=== PATIENT | female | born 1965 | race Caucasian/White ===

== ENCOUNTER 2022-05-20 14:28 | Emergency (ER) | payer BC, SELFPAY ==
[2022-05-20 14:43] VITALS: BP 135/85; PULSE 87; RESP 20; TEMP 37.9; O2SAT 94; BMI 23.9
--- NOTE | 2022-05-20 15:05 | CRLHL7_ITS ---
For Patients: As a result of the Century Cures Act, medical imaging exams and procedure reports are released immediately into your electronic medical record. You may view this report before your referring provider. If you have questions, please contact your health care provider. INDICATION: Headache TECHNIQUE: CT head without contrast. COMPARISON: CT January 2020. FINDINGS: No intracranial hemorrhage. No discrete mass or mass effect. There is no midline shift. The basilar cisterns are patent. No hydrocephalus. The bishop-white matter interface is otherwise preserved. No acute osseous abnormality. No extracalvarial soft tissue abnormality. The mastoid air cells are clear. The paranasal sinuses are well-aerated. The visualized portions of the orbits and globes are unremarkable. IMPRESSION: No acute intracranial process per unenhanced head CT. Please note that all CT scans at this facility use dose modulation, iterative reconstruction, and/or weight-based dosing when appropriate to reduce radiation dose to as low as reasonably achievable. Dictated by Spike Russo MD @ 05/20/2022 4:42:12 PM (Electronically Signed)
[2022-05-20] MEDS: 0.9 % SODIUM CHLORIDE 1000 ml 1,000 ML IV (15:24)
[2022-05-20] MEDS: KETOROLAC 30 MG/ML inj IVP (15:25)
[2022-05-20] MEDS: ONDANSETRON 2 MG/ML inj 4 MG IVP (15:25)
[2022-05-20] MEDS: ACETAMINOPHEN 500 MG TABLET 1000 MG PO (15:26)
--- NOTE | 2022-05-20 15:31 | ED_ITS ---
HPI - Headache General Date Seen: 05/20/22 <Osmani Franklin MD - Last Filed: 05/20/22 15:36> Chief Complaint: Headache/Migraine <Osmani Franklin MD - Last Filed: 05/20/22 15:36> Stated Complaint: Covid+ Extreme Headache <Osmani Franklin MD - Last Filed: 05/20/22 15:36> Time Seen by Provider: 05/20/22 14:55 <Osmani Franklin MD - Last Filed: 05/20/22 15:36> Source: patient <Osmani Franklin MD - Last Filed: 05/20/22 15:36> Mode of arrival: ambulatory <Osmani Franklin MD - Last Filed: 05/20/22 15:36> Limitations: no limitations <Osmani Franklin MD - Last Filed: 05/20/22 15:36> History of Present Illness HPI Narrative: Patient is a 48-year-old female who has been sick since last night, she developed the headache, she describes in hat band and also around her jaw presentation. Clearly the worst headache of her life, this came on well overnight, she is not taking anything for the headache, went to the clinic today and tested positive for COVID. She also has a cough associated with this and a low-grade fever she says of 100.4. Does not describe any sore throat, little bit of nausea, no vomiting, did eat this morning, no dysuria frequency no diarrhea, no diplopia or double vision or visual changes, but she said at some point last night she did feel like she had blurry vision. Denies any numbness tingling or weakness in her hands or feet no history of falls or injury, she is not vaccinated, on no chronic medications. Does smoke and has done so for greater than 30 years, works in a bank, does commercial owns in [employer]. <Osmani Franklin MD - Last Filed: 05/20/22 15:36> MD elicited complaint: migraine <Osmani Franklin MD - Last Filed: 05/20/22 15:36> Onset (ago): hour(s) <Osmani Franklin MD - Last Filed: 05/20/22 15:36> Onset description: suddenly <Osmani Franklin MD - Last Filed: 05/20/22 15:36> Location: band-like <Osmani Franklin MD - Last Filed: 05/20/22 15:36> Severity: severe <Osmani Franklin MD - Last Filed: 05/20/22 15:36> Quality & Timing: worst headache of life <Osmani Franklin MD - Last Filed: 05/20/22 15:36> Exacerbating factors: none and sitting/standing <Osmani Franklin MD - Last Filed: 05/20/22 15:36> Context: occurred at rest <Osmani Franklin MD - Last Filed: 05/20/22 15:36> Associated symptoms: nausea, sensitivity to sound, cough and other <Osmani Franklin MD - Last Filed: 05/20/22 15:36> Treatments prior to arrival: none <Osmani Franklin MD - Last Filed: 05/20/22 15:36> Related Data Home Medications: Previous Rx's Medication Instructions Recorded albuterol sulfate 90 mcg/actuation 1 puff inhalation Q4-6H PRN 05/08/22 aerosol inhaler (ProAir HFA) shortness of breath or wheezing #8.5 grams azithromycin 250 mg tablet See Rx Instructions PO .COMPLEX #6 05/08/22 tabs nirmatrelvir 150 mg-ritonavir 100 See Rx Instructions PO .COMPLEX #1 05/20/22 mg tablets in a dose pack (EUA) ea (Paxlovid) <Osmani Franklin MD - Last Filed: 05/20/22 15:36> Allergies/Adverse Reactions: Allergies Allergy/AdvReac Type Severity Reaction Status Date / Time No Known Drug Allergies Allergy Verified 05/08/22 08:31 <Osmani Franklin MD - Last Filed: 05/20/22 15:36> Review of Systems Status of ROS: Reports: 10 or more systems reviewed and unremarkable except as noted in History and below <Osmani Franklin MD - Last Filed: 05/20/22 15:36> PFSH PFSH Medical History: Medical History Cigarette smoker <Osmani Franklin MD - Last Filed: 05/20/22 15:36> Surgical History: Surgical History History of appendectomy History of colposcopy with cervical biopsy History of lumpectomy of right breast <Osmani Franklin MD - Last Filed: 05/20/22 15:36> Family History: Family History Sister Breast cancer Diabetes Mother High blood pressure Stroke Ovarian cancer Father Kidney failure <Osmani Franklin MD - Last Filed: 05/20/22 15:36> Social History: Social History Narrative: -Alonzo tobacco use Smoking Status: Current every day smoker What tobacco products do you use: cigarettes Smoking packs per day: 1 Smoking cigarettes per day: 20.0 Years smoked: 45 Smoking pack-years: 45.00 Do you use any of these nicotine containing products: None Second hand tobacco smoke exposure: No How often do you have a drink containing alcohol: never AUDIT-C Alcohol total score: 0 Non-prescribed substance use: marijuana (any form) <Osmani Franklin MD - Last Filed: 05/20/22 15:36> Exam Narrative: Exam Narrative: Patient is seen in room 3 she is in no apparent distress clearly not photophobic interacting normally GCS is 15/15. And nontoxic. Her pupils are equal round reactive to light her fundi appear normal there is no nystagmus, her TMs are normal bilaterally, cranial nerves 3-12 are normal, oropharynx is normal, her neck is supple full range of motion is noted flexion extension with absolutely no meningismus. Chest is clear bilaterally with the couple crackles on her right side heart sounds no clicks murmurs or gallops her abdomen is soft there is no guarding no past splenomegaly bowel sounds are normal fine motor movements and fingers nose testing are normal. Heel-pickett testing is normal, power is normal in upper lower extremities both proximal and distal, and symmetrically P normal. Skin reveals no petechiae or rashes. <Osmani Franklin MD - Last Filed: 05/20/22 15:36> Const: Vital Signs, click to edit/add: Vital Signs - 24 hr 05/20/22 14:43 05/20/22 16:33 Temperature 100.2 F H 99.8 F H Pulse Rate [Right Pulse Oximeter] 87 72 Respiratory Rate 20 18 Blood Pressure [Le ft Upper Arm] 135/85 103/70 Pulse Oximetry 94 95 Oxygen Delivery Me thod Room Air Room Air <Osmani Franklin MD - Last Filed: 05/20/22 15:36> Vital Signs, click to edit/add: Vital Signs - 24 hr 05/20/22 14:43 05/20/22 16:33 Temperature 100.2 F H 99.8 F H Pulse Rate [Right Pulse Oximeter] 87 72 Respiratory Rate 20 18 Blood Pressure [Le ft Upper Arm] 135/85 103/70 Pulse Oximetry 94 95 Oxygen Delivery Me thod Room Air Room Air <Des Smith MD - Last Filed: 05/20/22 17:03> Course Course Hospital Course: Only to sign her over to my partner for further delineation, follow-up of lab tests and workup. <Osmani Franklin MD - Last Filed: 05/20/22 15:36> Vital Signs Vital signs: Initial Vital Signs Temperature 100.2 F H 05/20/22 14:43 Temperature Source Temporal Artery Scan 05/20/22 14:43 Pulse Rate 87 05/20/22 14:43 Respiratory Rate 20 05/20/22 14:43 Blood Pressure 135/85 05/20/22 14:43 Blood Pressure Mean 101 05/20/22 14:43 Pulse Oximetry 94 05/20/22 14:43 Oxygen Delivery Method 05/20/22 14:43 Vital Signs Temperature 100.2 F H 05/20/22 14:43 Pulse Rate 87 05/20/22 14:43 Respiratory Rate 20 05/20/22 14:43 Blood Pressure 135/85 05/20/22 14:43 Pulse Oximetry 94 05/20/22 14:43 Oxygen Delivery Method 05/20/22 14:43 Temperature 99.8 F H 05/20/22 16:33 Pulse Rate 72 05/20/22 16:33 Respiratory Rate 18 05/20/22 16:33 Blood Pressure 103/70 05/20/22 16:33 Pulse Oximetry 95 05/20/22 16:33 Oxygen Delivery Method 05/20/22 16:33 <Osmani Franklin MD - Last Filed: 05/20/22 15:36> Initial Vital Signs Temperature 100.2 F H 05/20/22 14:43 Temperature Source Temporal Artery Scan 05/20/22 14:43 Pulse Rate 87 05/20/22 14:43 Respiratory Rate 20 05/20/22 14:43 Blood Pressure 135/85 05/20/22 14:43 Blood Pressure Mean 101 05/20/22 14:43 Pulse Oximetry 94 05/20/22 14:43 Oxygen Delivery Method 05/20/22 14:43 Vital Signs Temperature 100.2 F H 05/20/22 14:43 Pulse Rate 87 05/20/22 14:43 Respiratory Rate 20 05/20/22 14:43 Blood Pressure 135/85 05/20/22 14:43 Pulse Oximetry 94 05/20/22 14:43 Oxygen Delivery Method 05/20/22 14:43 Temperature 99.8 F H 05/20/22 16:33 Pulse Rate 72 05/20/22 16:33 Respiratory Rate 18 05/20/22 16:33 Blood Pressure 103/70 05/20/22 16:33 Pulse Oximetry 95 05/20/22 16:33 Oxygen Delivery Method 05/20/22 16:33 <Des Smith MD - Last Filed: 05/20/22 17:03> MDM - Headache MDM Narrative Medical decision making narrative: Life-threatening differential diagnosis include subarachnoid hemorrhage, meningitis, encephalitis, carbon monoxide poisoning, and intracerebral hemorrhage. Other differential diagnosis include but not limited to migraine, cluster headache, tension headache, WHE[employer]IC vasculitis, mass lesion, temporal arteritis, click acute closed angle glaucoma, septal and trigeminal neuralgia, sinusitis, closed head injury, and stroke. We will do a head CT along with labs I will start an IV, I will do a D-dimer, this is negative in the setting of COVID which is also somewhat lung likely then we can stop the further workup for entities such as thrombosis or thrombosis like phenomena. I will also do is to chest x-ray <Osmani Franklin MD - Last Filed: 05/20/22 15:36> Life-threatening differential diagnosis include subarachnoid hemorrhage, meningitis, encephalitis, carbon monoxide poisoning, and intracerebral hemorrhage. Other differential diagnosis include but not limited to migraine, cluster headache, tension headache, WHEEL [employer]MENT MECH[employer]IC vasculitis, mass lesion, temporal arteritis, click acute closed angle glaucoma, septal and trigeminal neuralgia, sinusitis, closed head injury, and stroke. We will do a head CT along with labs I will start an IV, I will do a D-dimer, this is negative in the setting of COVID which is also somewhat lung likely then we can stop the further workup for entities such as thrombosis or thrombosis like phenomena. I will also do is to chest x-ray. CT scan of the head and chest returned with reassuring findings as does her lab results. In particular her D-dimer is in normal range. The patient's symptoms are explained by the positive COVID test. She is a candidate for Paxlovid and this was prescribed for her. She is okay to return home and use over counter medications as needed and directed. <Des Smith MD - Last Filed: 05/20/22 17:03> Differential Diagnosis Differential diagnosis: Likely migraine, tension headache, subarachnoid hemorrhage, headache, meningitis, sinusitis and postconcussion syndrome <Osmani Franklin MD - Last Filed: 05/20/22 15:36> Medical Records Attestation: I reviewed the patient's medical records. <Osmani Franklin MD - Last Filed: 05/20/22 15:36> Lab Data Labs: Lab Results 05/20/22 05/20/22 05/20/22 Range/Units 15:20 15:20 15:20 WBC 3.59 L (4.50-11.00) K/uL RBC 3.98 L (4.00-5.20) m/uL Hgb 12.2 (12.0-16.0) gm/dL Hct 36.4 (33.0-51.0) % MCV 92 (80-100) fL MCH 31 (26-34) pg MCHC 34 (32-36) gm/dL RDW Coeff of Joss 13.3 (11.5-15.5) % Plt Count 204 (140-440) K/uL Neut % (Auto) 70.7 (42.0-72.0) % Lymph % (Auto) 6.4 L (20-44) % [place] % (Auto) 19.5 H (0.0-11.0) % Eos % (Auto) 2.8 (0.0-7.0) % Baso % (Auto) 0.6 (0.0-3.0) % Neut # (Auto) 2.50 (1.7-7.0) K/uL Lymph # (Auto) 0.20 L (0.90-2.90) K/uL [place] # (Auto) 0.70 (0.00-0.90) K/UL Eos # (Auto) 0.10 (0.00-0.50) K/uL Baso # (Auto) 0.00 (0.00-0.30) K/uL Abs Immat Gran (auto) 0.00 (0.00-0.30) K/uL D-Dimer Quant (PE/DVT) 0.40 (0.00-0.50) ug/ml Sodium 134 L (135-149) mmol/L Potassium 3.7 (3.6-5.1) mmol/L Chloride 105 (96-114) mmol/L Carbon Dioxide 22 (20-32) mmol/L BUN 11 (7-30) mg/dL Creatinine 0.9 (0.5-1.5) mg/dL Estimated Creat Clear 56.36 Estimated GFR 74 ml/min Glucose 113 (60-115) mg/dL Calcium 9.0 (8.4-10.6) mg/dL C-Reactive Protein 0.5 (0.5-1.0) mg/dL <Osmani Franklin MD - Last Filed: 05/20/22 15:36> Lab Results 05/20/22 05/20/22 05/20/22 Range/Units 15:20 15:20 15:20 WBC 3.59 L (4.50-11.00) K/uL RBC 3.98 L (4.00-5.20) m/uL Hgb 12.2 (12.0-16.0) gm/dL Hct 36.4 (33.0-51.0) % MCV 92 (80-100) fL MCH 31 (26-34) pg MCHC 34 (32-36) gm/dL RDW Coeff of Joss 13.3 (11.5-15.5) % Plt Count 204 (140-440) K/uL Neut % (Auto) 70.7 (42.0-72.0) % Lymph % (Auto) 6.4 L (20-44) % [place] % (Auto) 19.5 H (0.0-11.0) % Eos % (Auto) 2.8 (0.0-7.0) % Baso % (Auto) 0.6 (0.0-3.0) % Neut # (Auto) 2.50 (1.7-7.0) K/uL Lymph # (Auto) 0.20 L (0.90-2.90) K/uL [place] # (Auto) 0.70 (0.00-0.90) K/UL Eos # (Auto) 0.10 (0.00-0.50) K/uL Baso # (Auto) 0.00 (0.00-0.30) K/uL Abs Immat Gran (auto) 0.00 (0.00-0.30) K/uL D-Dimer Quant (PE/DVT) 0.40 (0.00-0.50) ug/ml Sodium 134 L (135-149) mmol/L Potassium 3.7 (3.6-5.1) mmol/L Chloride 105 (96-114) mmol/L Carbon Dioxide 22 (20-32) mmol/L BUN 11 (7-30) mg/dL Creatinine 0.9 (0.5-1.5) mg/dL Estimated Creat Clear 56.36 Estimated GFR 74 ml/min Glucose 113 (60-115) mg/dL Calcium 9.0 (8.4-10.6) mg/dL C-Reactive Protein 0.5 (0.5-1.0) mg/dL <Des Smith MD - Last Filed: 05/20/22 17:03> Imaging Data Chest x-ray: Radiologist's impression: Cardiovascular and mediastinum: Mild cardiomegaly with atherosclerotic calcification. Lungs and pleural space: Low lung volumes with small left and likely trace right pleural effusion. Bibasilar opacities, likely dependent atelectasis. Some separate haziness over the mid to lower lung zones, probably mild interstitial edema. Bones and soft tissues: Bilateral glenohumeral osteoarthritis. <Des Smith MD - Last Filed: 05/20/22 17:03> CT scan - head: Radiologist's impression: No acute intracranial process per unenhanced head CT. <Des Smith MD - Last Filed: 05/20/22 17:03> Discharge Plan Discharge Clinical Impression: COVID-19 <Osmani Franklin MD - Last Filed: 05/20/22 15:36> Instructions: COVID-19 (Coronavirus Disease 2019) (ED) <Osmani Franklin MD - Last Filed: 05/20/22 15:36> Additional Instructions: Take medication as prescribed and use [id number] medications as needed and directed. Follow up with MD or return if worsening symptoms happen. <Osmani Franklin MD - Last Filed: 05/20/22 15:36> Prescriptions: New Paxlovid (EUA) 150-100 mg tablets,dose pack See Rx Instructions PO .COMPLEX Qty: 1 0RF Rx Instructions: orally per package directions No Action azithromycin 250 mg tablet See Rx Instructions PO .COMPLEX Qty: 6 0RF Rx Instructions: For 250 mg dose pack: take 500 mg today (day 1), then 250 mg for 4 days (days 2-5) orally; albuterol sulfate [ProAir HFA] 90 mcg/actuation HFA aerosol inhaler 1 puff inhalation Q4-6H PRN (Reason: shortness of breath or wheezing) Qty: 8.5 4RF <Osmani Franklin MD - Last Filed: 05/20/22 15:36> Follow Up/Referrals: Anali Matos MD [Primary Care Provider] - <Osmani Franklin MD - Last Filed: 05/20/22 15:36>
--- NOTE | 2022-05-20 15:35 | CRLHL7_ITS ---
For Patients: As a result of the Cures Act, medical imaging exams and procedure reports are released immediately into your electronic medical record. You may view this report before your referring provider. If you have questions, please contact your health care provider. INDICATION: Cough, Covid positive. TECHNIQUE: Chest 1 views. COMPARISON: None. FINDINGS: Cardiovascular and mediastinum: Heart size and vasculature are normal in caliber and appearance. Lungs and pleural spaces: Lungs are clear. No sign of infiltrate or mass. No sign of pleural effusion. No pneumothorax. Bones and soft tissues: No significant findings. IMPRESSION: No acute or significant findings. Dictated by Aries Marie MD @ 05/20/2022 4:44:29 PM (Electronically Signed)
[2022-05-20 15:37] LABS: Basophils Percent Auto 0.6 % (0.0-3.0); Eosinophils Percent Auto 2.8 % (0.0-7.0); Hematocrit 36.4 % (33.0-51.0); Hemoglobin* 12.2 gm/dL (12.0-16.0); Lymphocytes Percent Auto 6.4 % (20-44); Mean Corpuscular HGB Conc 34 gm/dL (32-36); Mean Corpuscular Hemoglobin 31 pg (26-34); Mean Corpuscular Volume 92 fL (80-100); Monocytes Percent Auto 19.5 % (0.0-11.0); Neutrophils Percent Auto 70.7 % (42.0-72.0); Platelet Count* 204 K/uL (140-440); RDW Coefficient of Variation % 13.3 % (11.5-15.5); Red Blood Count 3.98 m/uL (4.00-5.20); White Blood Count* 3.59 K/uL (4.50-11.00)
[2022-05-20 15:38] LABS: Slide Review Reflex No
--- OUTSIDE RECORDS SUMMARY | 2022-05-20 15:56 | XMS_ITS ---
:1965 Author Care Team Providers Name Role Phone Lukas Croft Primary Care Provider Unavailable Allergies None recorded. Medications None recorded. Problems None recorded. Procedures None recorded. Results Lab Results Date Name Specimen Result Interpretation Description Value Range Status Address ? 09/23/2021 SARS CoV 2 RNA, Nose (nasal ? Result negative ? ? [facility], [facility]probe, passage) [facility] [place]: [address] , [place] Past Encounters 09/23/2021 Exposure to SARS-CoV-2 Lukas Croft, [place]: [address], [address], [place] [address], Ph. Social History None recorded. Vaccine List Vaccine Type Tdap 04/23/2009 04/11/2016 Plan of Care Patient Instructions Discussed rapid covid results with jh ent. No treatment indicated as patient is asymptomatic. Patient in agreement and understanding. All questions answered. RTC as needed. Reminders Provider Appointments None recorded. ? ? Lab None recorded. ? ? Referral None recorded. ? ? Procedures None recorded. ? ? Surgeries None recorded. ? ? Imaging None recorded. ? ? Vitals Blood Pressure 145/83 mm[Hg]
--- OUTSIDE RECORDS SUMMARY | 2022-05-20 15:56 | XMS_ITS | Clinical Summary ---
:1965 Author Organization [facility] [place] [address] Care Team Providers Name Role Phone Palmer Briseno MD Primary Care Provider Allergies No known active allergies Medications Medication Sig Dispensed Refills Start Date End Date Status naproxen (NAPROSYN) 500 Take 1 tablet by 0 6 Active mg tablet mouth 2 times daily with meals. traMADol (ULTRAM) 50 mg Take 1 tablet by 0 6 Active tablet mouth every 6 hours if needed for Pain. cyclobenzaprine Take 1 tablet by 0 07/09/2016 Active (FLEXERIL) 10 mg tablet mouth 3 times daily. predniSONE (DELTASONE) Take 1 tablet by 0 07/09/2016 Active 20 mg tablet mouth once daily with a meal. Patient was prescribed this on 05/15/[address] Pena HYDROcodone-acetaminoph Take 1 tablet by 0 6 Active en, 5-325 mg, (NORCO) mouth every 4 per tablet hours if needed for Pain Max acetaminophen dose: 4000 mg in 24 hrs. methylPREDNISolone Patient was 1 Package 0 07/09/2016 Active (MEDROL DOSEPAK) 4 mg prescribed this tablet medication on 05/11/[address] Guerrero gabapentin (NEURONTIN) Take 1 capsule by 30 capsule 3 07/09/20 16 Active 300 mg mouth at bedtime. capsuleIndications: Lumbar disc herniation, Lumbar radiculopathy Active Problems No known active problems Family History Medical History Relation Name Comments Kidney disease Father Cancer-ovarian Maternal Grandmother Good Health Mother Cancer-breast Sister 1 Diabetes Sister 2 Relation Name Status Comments Father Kidney-disease Maternal Grandmother Mother Spinal stenosis Sister 1 Sister 2 Social History Tobacco Use Types Packs/Day Years Used Date Current Every Day Smoker Cigarettes 1 Smokeless Tobacco: Never Used Tobacco Cessation: Ready to Quit: No; Co unseling Given: Yes Alcohol Use Standard Drinks/Week Comments No 0 (1 standard drink = 0.6 oz pure alcoho l) Sex Assigned at Date Recorded Not on file Obstetrics History Last Filed Vital Signs Vital Sign Reading Time Taken Comments Blood Pressure 117/76 07/09/2016 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 Pulse 69 07/09/2016 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 Temperature 36.8 ??C (98.3 ??F) 07/09/2016 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 Respiratory Rate - - Oxygen Saturation 99% 07/09/2016 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 Inhaled Oxygen Concentration - - Weight 57 kg (125 lb 9.6 oz) 07/09/2016 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 Height 160.8 cm (5' 3.3) 07/09/2016 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 Body Mass Index 22.04 07/09/2016 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 Plan of Treatment Health Maintenance Due Date Last Done Comments COVID-19 vaccine series (#1) 1965 Tdap 1974 Depression screening for age 12+ 1975 Hepatitis C screening for age 18-79 1981 Tetanus booster 1983 Colonoscopy through age 75 2008 Lipids for age 45-75 2008 Mammogram for age 45-75 2008 Zoster (shingles) series for age 50+ (1 of 2013 2) BMI (ht and wt on same day) for age 18+ 07/09/2017 07/09/20 16 Pap test for age 21-65 06/22/2020 06/22/2017, 06/22/2017 Influenza for age 50-64 04/24/2022 Results Not on filefrom Last 3 Months Insurance Payer Benefit Plan / Subscriber ID Effective Dates Phone Addre ss Type Group BLUE CROSS BLUE CROSS OF [id number] 2007-Present [address] [address] [place] [address] Care Teams Scrap Piler Relationship Specialty Start Date End Date Palmer Briseno MD PCP - General Family Practice 07/09/16 [address] [place] [address]
[2022-05-20 16:10] LABS: Chloride* 105 mmol/L (96-114); Potassium* 3.7 mmol/L (3.6-5.1); Sodium* 134 mmol/L (135-149)
[2022-05-20 16:13] LABS: Creatinine* 0.9 mg/dL (0.5-1.5); Est. Creatinine Clearance* 56.36; Estimated Glomerular Filt Rate 74 ml/min
[2022-05-20 16:14] LABS: Blood Urea Nitrogen* 11 mg/dL (7-30); Carbon Dioxide* 22 mmol/L (20-32); Glucose* 113 mg/dL (60-115)
[2022-05-20 16:17] LABS: C Reactive Protein* 0.5 mg/dL (0.5-1.0)
[2022-05-20 16:33] VITALS: BP 103/70; PULSE 72; RESP 18; TEMP 37.7; O2SAT 95
== END 2022-05-20 17:14 | disposition home or self-care (01) ==
PROVIDERS: Family Medicine; Emergency Provider Emergency Medicine Emergency Medical Services; PCP Family Medicine
DX: U07.1 COVID-19 (principal)
CPT/HCPCS: 36415; 70450; 71045; 80048; 85025; 85379; 86140; 96374; 96375; 99285; A9270; J1885; J2405; J7030

== ENCOUNTER 2022-07-09 09:10 | Outpatient (CLI) | payer BC, SELFPAY ==
--- OUTSIDE RECORDS SUMMARY | 2022-07-09 07:45 | XMS_ITS | Clinical Summary ---
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 Pulse 69 07/09/2016 9:18 AM HAND BULLDOZER Temperature 36.8 ??C (98.3 ??F) 07/09/2016 9:18 AM HAND BULLDOZER Respiratory Rate - - Oxygen Saturation 99% 07/09/2016 9:18 AM HAND BULLDOZER Inhaled Oxygen Concentration - - Weight 57 kg (125 lb 9.6 oz) 07/09/2016 9:18 AM HAND BULLDOZER Height 160.8 cm (5' 3.3) 07/09/2016 9:18 AM HAND BULLDOZER Body Mass Index 22.04 07/09/2016 9:18 AM HAND BULLDOZER Plan of Treatment Health Maintenance Due Date [...] Type Group BLUE CROSS BLUE CROSS OF [id number] 2007-Present [address] [address] [place] [address] Care Teams Bunk House Worker Relationship Specialty Start Date End Date Palmer Briseno MD PCP - General Family Practice 07/09/16 [address] [place] [address]
[2022-07-09 10:20] LABS: Vitamin D 25 Hydroxy* 22 ng/mL (30-80)
[2022-07-09 10:38] LABS: Ferritin* 50.7 ng/mL (11.1-264.0)
[2022-07-09 11:00] LABS: Albumin* 4.4 g/dL (3.3-5.0); Chloride* 108 mmol/L (96-114)
[2022-07-09 11:01] LABS: Potassium* 4.4 mmol/L (3.6-5.1); Sodium* 139 mmol/L (135-149)
[2022-07-09 11:03] LABS: Alanine Aminotransferase* 17 U/L (4-35); Alkaline Phosphatase* 62 U/L (40-150); Aspartate Amino Transferase* 26 U/L (12-35); Bilirubin Total* 0.6 mg/dL (0.1-1.5); Blood Urea Nitrogen* 16 mg/dL (7-30); Carbon Dioxide* 24 mmol/L (20-32); Cholesterol* 196 mg/dL (90-199); Creatinine* 0.8 mg/dL (0.5-1.5); Estimated Glomerular Filt Rate 85 ml/min; Glucose* 91 mg/dL (60-115); Total Protein* 6.9 g/dL (6.0-8.3); Triglycerides* 83 mg/dL (40-149)
[2022-07-09 11:04] LABS: Calcium* 9.6 mg/dL (8.4-10.6); HDL Cholesterol* 69 mg/dL (>=50); LDL Cholesterol Calculated 110 mg/dL (<100)
[2022-07-09 11:52] LABS: Vitamin B12* 330 pg/mL (243-894)
== END 2022-07-09 09:11 | disposition home or self-care (01) ==
PROVIDERS: PCP Family Medicine; Visit Provider Family Medicine
DX: Z01.419 Encounter for gynecological examination (general) (routine) without abnormal findings (principal); R53.83 Other fatigue; E55.9 Vitamin D deficiency, unspecified; Z13.6 Encounter for screening for cardiovascular disorders
CPT/HCPCS: 80053; 80061; 82306; 82607; 82728; 84443

== ENCOUNTER 2023-12-15 09:43 | Outpatient (CLI) | payer BC, SELFPAY ==
--- OUTSIDE RECORDS SUMMARY | 2023-12-15 09:47 | XMS_ITS | Clinical Summary ---
Author Name Unknown Organization [employer] [facility] Address [place], [place] [address] Care Team Providers Care Pharmacy Operations Manager Name Role Phone Unavailable Primary Care Provider Unavailabl e Allergies No known active allergies Medications Medication Sig Dispensed Refills Start Date End Date Status naproxen (NAPROSYN) 500 mg tablet Take 1 tablet by mouth 2 times daily with meals. 0 07/09/2016 Active traMADol (ULTRAM) 50 mg tablet Take 1 tablet by mouth every 6 hours if needed for Pain. 0 07/09/2016 Active cyclobenzaprine (FLEXERIL) 10 mg tablet Take 1 tablet by mouth 3 times daily. 0 07/09/2016 Active predniSONE (DELTASONE) 20 mg tablet Take 1 tablet by mouth once daily with a meal. Patient was prescribed this on 05/15/[address] Pena 0 07/09/2016 Active HYDROcodone-acetami nophen, 5-325 mg, (NORCO) per tablet Take 1 tablet by mouth every 4 hours if needed for Pain Max acetaminophen dose: 4000 mg in 24 hrs. 0 07/09/2016 Active methylPREDNISolone (MEDROL DOSEPAK) 4 mg tablet Patient was prescribed this medication on 05/11/[address] Guerrero 1 Package 07/09/2016 Active gabapentin (NEURONTIN) 300 mg capsuleIndications: Lumbar disc herniation,Lumbar radiculopathy Take 1 capsule by mouth at bedtime. 30 capsule 3 07/09/2016 Active Active Problems No known active problems Family History Medical History Relation Name Comments Kidney disease Father Cancer-ovarian Maternal Grandmother Good Health Mother Cancer-breast Sister 1 Diabetes Sister 2 Relation Name Status Comments Father Kidney-disease Maternal Grandmother Mother Spinal stenosis Sister 1 Sister 2 Social History Tobacco Use Types Packs/Day Years Used Date Smoking Tobacco: Every Day Cigarettes Smokeless Tobacco: Never Tobacco Cessation:Ready to Q uit: No; Counseling Given: Yes Alcohol Use Standard Drinks/Week Comments No 0 (1 standard drink = 0.6 oz pur e alcohol) Sex and Gender Information Value Date Recorded Sex Assigned at Not on file Gender Identity Not on file Sexual Orientation Not on file Obstetrics History Last Filed Vital Signs Vital Sign Reading Time Taken Comments Blood Pressure 117/76 07/09/2016 9:18 AM BAG REPAIRER Pulse 69 07/09/2016 9:18 AM BAG REPAIRER Temperature 36.8 ??C (98.3 ??F) 07/09/2016 9:18 AM CS T Respiratory Rate - - Oxygen Saturation 99% 07/09/2016 9:18 AM BAG REPAIRER Inhaled Oxygen Concentration - - Weight 57 kg (125 lb 9.6 oz) 07/09/2016 9:18 AM BAG REPAIRER Height 160.8 cm (5' 3.3) 07/09/2016 9:18 AM BAG REPAIRER Body Mass Index 22.04 07/09/2016 9:18 AM BAG REPAIRER Plan of Treatment Health Maintenance Due Date Last Done Comments Tdap 1974 Depression screening for age 12+ 1975 HIV for age 15-65 1978 Hepatitis C screening for age 18-79 1981 Tetanus booster 1983 Colonoscopy through age 75 2008 Lipids for age 45-75 2008 Mammogram for age 45-75 2008 Zoster (shingles) series for age 50+ (1 of 2) 2013 BMI (ht and wt on same day) for age 18+ 07/09/2017 07/09/2016 COVID-19 vaccine series (2022- season) 2023 Influenza for age 50-64 04/24/2024 Pap test for age 21-65 07/11/2025 , 07/11/2022, 06/22/2017, Additional history exists Pneumococcal series for age 6-64 Aged Out No longer eligible based on patient's age to complete this topic Procedures Procedure Name Priority Date/Time Associated Diagnosis Comments HPV THIN PREP Routine 07/11/2022 8:05 AM BAG REPAIRER from Last 3 Months or Most Recently Relevant to Health Maintenance Results * HPV HIGH RISK (07/11/2022 8:05 AM BAG REPAIRER) TYPE 16 Negative Negative 07/18/2022 11:18 AM BAG REPAIRER [facility] TYPE 18 Negative Negative 07/18/2022 11:18 AM BAG REPAIRER [facility] OTHER HIGH RISK TYPES Negative Negative 07/18/2022 11:18 AM BAG REPAIRER [facility] Other (Cervical) 07/11/2022 8:05 AM BAG REPAIRER 07/14/2022 9:09 AM BAG REPAIRER Narrative [facility] - 07/18/2022 11:18 AM BAG REPAIRER HPV types 16, 18, 31, 33, 35, 39, 45, 51, 52, 56, 58, 59, 66 and 68 DNA were undetectable or below the pre-set threshold. Methodology: Woody My 4800 HPV Test Anali Matos MD [employer] [address] [place] [address], from Last 3 Months or Most Recently Relevant to Health Maintenance
== END 2023-12-15 09:44 | disposition home or self-care (01) ==
LOC: NFLDUCREF 09:46
PROVIDERS: PCP Family Medicine; Visit Provider Nurse Practitioner
DX: R06.02 Shortness of breath (principal)
CPT/HCPCS: 84484

== ENCOUNTER 2024-10-21 08:46 | Outpatient (RCR) | payer BC, SELFPAY ==
--- NOTE | 2024-10-21 12:54 | PT.OPE ---
PT [place] Out[facility] Eval PT [facility] Outpatient Eval Start: 10/21/24 07:50 Freq: Status: Active Protocol: Document 10/21/24 07:51 ENM (Rec: 10/21/24 10:30 ENM [id number]) E-signed By Florencia Briscoe, DPT Physical Therapy Outpatient Evaluation Insurance Information Insurance Name [employer] Medical Diagnosis anesthesia of skin other symptoms and signs involving the musculoskeletal system Treating Diagnosis left leg pain, muscle weakness , neural tension, lumbar spine hypomobility, Imaging Report Information Xray Grade 1 degenerative spondylolisthesis of L4 on L5. Degenerative disc disease and facet degeneration L5-S1 Degenerative disc disease L3-4 . Referring MD Matos Subjective Subjective Patient presents to PT for complaint of left leg numbness and weakness that started a month ago. It seemed to start out of nowhere. 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 Is becoming less active with housework too. She does not exercises and smokes like a chimney. Even with bending to squat and grab something she feels weakness in that leg. It is always numb but sometimes is worse with sitting too long . Numbness is more through the front of the leg. Has a history of sciatic nerve and back problems that improved with injections, her family has a history for back issues. Does also have a history for anxious legs at night. When it started: a month ago Describes it as: not painful just numb Timing: worsens with sitting Location: anterior thigh Irritability: mild-mod Severity: mild Pain Comments easing: stretching aggravating: sitting, squatting, stairs Occupation [employer] Objective Other/Pertinent Objective Lumbar AROM: FF: WNL, minimal curve reversal EXT: WNL feeling weak in the left leg SB: WNL ROT: WNL EXT with ROT: no pain more limited toward right FLEX and ROT: no pain Hip PROM: Flexion: WNL B IR: WNL B ER: 25% limited B *feeling some discomfort in left hip with PROM log roll is pain free strength: Hip flexors: L 3+/5 R 4+/5 Knee extensors: L 4-/5 R 4+/5 ankle DF L 4-/5 R 4+/5 Palpation/joint mobility: TL junction mobility cat cow: limited into lumbar extension Lumbar PA mobilization: stiffness throughout L3-5 central and L PA Special tests: SLR: - Reflexes: equal for patellar reflex: Elys + on L Assessment Assessment/Impression Patient is a 59 year old female presenting with 1 month history of LLE numbness and weakness. Their primary complaint is of not feeling confident in their strength of the leg with activities like squatting or lifting. They are fairly inactive and sit a lot for their day job. Xray showed Grade 1 degenerative spondylolisthesis of L4 on L5, Degenerative disc disease and facet degeneration L5-S1 and Degenerative disc disease L3-4 . Upon assessment patients concordant pains brought on with hip ROM, femoral nerve tensioning and PAs L3-5 central and on left side. SLR was negative for reproduction of symptoms and patellar reflex is intact. They display global lower extremity weakness on the left side compared to right. Symptoms likely discogenic in nature. Franchesca would greatly benefit from skilled PT to address impairments stated above in order to perform functional mobility and household activities without significant discomfort or difficulty. Primary Functional Limitations squatting, stairs Plan of Care Rehabilitation Potential Good Rehabilitation Potential Comments fair-good Physical Therapy Goals In 6-8 visits: 1. Patient will be IND with HEP and self management of symptoms 2. Patient improve global LLE strength to at least 4/5 for improved ability to perform household duties 3. Patient will perform the stairs during her work day without difficulty or discomfort after 4. Patient will demonstrate and implement proper body mechanics with sitting during her work day to decrease risk of reinjury 5. Patient will participate in a walking or exercise routine 3 times a week to improve cardiovascular fitness Coordination/Communication With Referral Source Treatment Plan/Direct Interventions Dry Needling,Electrical Stimulation,Gait Training,Heat ,Ice/Cold/Vasopneumatic,Joint Mobilization,Manual Therapy, Neuromuscular Re-ed,Self-Care/ Home Management,Therapeutic Activities,Therapeutic Exercises,Traction (Mechanical ) Frequency/Duration 1x a week for 6-8 weeks, 2-3 visits as needed Patient Will Be Discharged From Therapy Completion of LTG(s), Independent w/HEP Evaluation Billing Untimed Code Treatment Minutes 26 Complexity Low Certification Information Provider Signature Required Communication Only-No Signature Required
== END 2025-02-18 23:59 | disposition home or self-care (01) ==
PROVIDERS: PCP Family Medicine; Visit Provider Family Medicine
DX: R20.0 Anesthesia of skin (principal); R29.898 Other symptoms and signs involving the musculoskeletal system; M79.605 Pain in left leg; Z51.89 Encounter for other specified aftercare
CPT/HCPCS: 97110; 97161